=== PATIENT | female | born 1935 | race African-American/Black ===

== ENCOUNTER 2017-07-11 10:55 | Inpatient (IN) | payer SELFPAY ==
[~2017-07-11] VITALS: Ht 162.6 cm; Wt 50.8 kg
[2017-07-11] MEDS ORDERED: SODIUM CHLORIDE 0.9% 1000ML BAG (SEPSIS BOLUS) IV ONE (11:15)
[2017-07-11 11:57] LABS: BASOPHILS % 1.3 % (0.0-2.0); HEMATOCRIT. 36.6 % (36.0-48.0); HEMOGLOBIN. 12.1 g/dL (12.0-16.0); MEAN CORPUSCULAR HEMOGLOBIN 25.1 pg (28.0-32.0); MEAN CORPUSCULAR VOLUME 75.9 fL (81.0-99.0); MEAN PLATELET VOLUME 8.4 fl (7.4-10.4); MONOCYTES % 10.8 % (2.0-8.0); NEUTROPHILS % 68.9 % (40.0-76.0); PLATELET 106 x1000/uL (130-400); RED BLOOD CELL COUNT 4.82 mill/uL (4.2-5.4); RED CELL DISTRIBUTION WIDTH 14.6 % (11.6-14.6)
[2017-07-11 12:03] LABS: CHLORIDE 107 mEq/L (98-107)
[2017-07-11 12:10] LABS: PROTHROMBIN TIME 10.9 sec (9.4-11.6)
[2017-07-11 12:12] LABS: CARBON DIOXIDE 30 mEq/L (21-32)
[2017-07-11 14:25] LABS: CLARITY URINE CLOUDY (CLEAR); COLOR URINE YELLOW (YELLOW); GLUCOSE URINE NEGATIVE (NEGATIVE); KETONES URINE NEGATIVE (NEGATIVE); LEUKOCYTE ESTERASE URINE 1+ (NEGATIVE); NITRITE URINE POSITIVE (NEGATIVE); OCCULT BLOOD URINE NEGATIVE (NEGATIVE); PH URINE 5.5 (4.5-8.0); PROTEIN URINE NEGATIVE (NEGATIVE); SPECIFIC GRAVITY URINE 1.015 (1.005-1.030)
[2017-07-11] MEDS ORDERED: CEFTRIAXONE 1 G PREMIX 50 ML IV ONE (15:00)
[2017-07-11] MEDS ORDERED: BENA40TA3 PO (17:55)
[2017-07-11] MEDS ORDERED: RISP2TAB22 PO (17:56)
[2017-07-11 18:02] VITALS: BP 131/80
[2017-07-11] MEDS ORDERED: ONDANSETRON HCL 4MG/2ML VIAL IV PRN (18:45)
[2017-07-11] MEDS ORDERED: DOCUSATE SODIUM 100MG CAPSULE PO PRN (18:45)
[2017-07-11] MEDS ORDERED: LEVOFLOXACIN 500MG PREMIX 100 ML IV SCH (18:45)
[2017-07-11] MEDS ORDERED: MEDICATION NOT ON FORMULARY EA (Benazepril Hcl 1 TAB) PO SCH (18:45)
[2017-07-11] MEDS ORDERED: ACETAMINOPHEN 650MG SUPP PR PRN (18:45)
[2017-07-11] MEDS ORDERED: ENOXAPARIN 40MG/0.4ML SYR SUBCUT SCH (18:45)
[2017-07-11] MEDS ORDERED: MAGNESIUM/ALUMINUM HYDROXIDE/SIMETHICONE 30ML UDC PO PRN (18:45)
[2017-07-11] MEDS ORDERED: NA PHOS,M-B/NA PHOS,DI-BA ENEMA 118ML PR PRN (18:45)
[2017-07-11] MEDS ORDERED: DIPHENHYDRAMINE 50MG/ML VIAL IV PRN (18:45)
[2017-07-11] MEDS ORDERED: HYDROCODONE/ACETAMINOPHEN 5/325MG TABLET PO PRN (18:45)
[2017-07-11] MEDS ORDERED: IPRATROPIUM/ALBUTEROL 0.5-3(2.5)MG/3ML NEB INH PRN (18:45)
[2017-07-11] MEDS ORDERED: ACETAMINOPHEN 650MG/20.3ML UDC GT PRN (18:45)
[2017-07-11] MEDS ORDERED: GUAIFENESIN 200MG/10ML SUGAR FREE UDC PO PRN (18:45)
[2017-07-11 20:00] VITALS: BP 173/91
[2017-07-11] MEDS ORDERED: LEVOFLOXACIN 500MG PREMIX 100 ML IV NR (20:00)
[2017-07-11] MEDS: SODIUM CHLORIDE 0.9% INJ 3ML FLUSH IVF SCH (20:43)
[2017-07-11] MEDS: ENOXAPARIN 30MG/0.3ML SYR SUBCUT SCH (20:43)
[2017-07-11] MEDS: CLONIDINE 0.1MG TABLET PO PRN (20:44)
[2017-07-11 23:08] LABS: CLARITY URINE CLEAR (CLEAR); COLOR URINE YELLOW (YELLOW); GLUCOSE URINE NEGATIVE (NEGATIVE); KETONES URINE NEGATIVE (NEGATIVE); LEUKOCYTE ESTERASE URINE TRACE (NEGATIVE); NITRITE URINE NEGATIVE (NEGATIVE); OCCULT BLOOD URINE TRACE (NEGATIVE); PH URINE 5.5 (4.5-8.0); PROTEIN URINE NEGATIVE (NEGATIVE); SPECIFIC GRAVITY URINE 1.009 (1.005-1.030); UROBILINOGEN URINE 0.2 E.U./dL (0.2-1.0)
[2017-07-11 23:23] LABS: *AMPHETAMINES SCREEN URINE NEGATIVE (NEGATIVE); *BARBITURATES SCREEN URINE NEGATIVE (NEGATIVE); *BENZODIAZEPINES SCREEN URINE NEGATIVE (NEGATIVE); *COCAINE SCREEN URINE NEGATIVE (NEGATIVE); CANNABINOID URINE SCREEN NEGATIVE (NEGATIVE); METHADONE URINE SCREEN NEGATIVE (NEGATIVE); OPIATES URINE SCREEN PRESUMTIVE POSITIVE (NEGATIVE); PHENCYCLIDINE URINE SCREEN NEGATIVE (NEGATIVE)
[2017-07-11 23:29] LABS: CREATINE KINASE 67 IU/L (26-192); TROPONIN I < 0.02 ng/mL (0.00-0.04)
[2017-07-12] VITALS: BP 153/77
[2017-07-12 04:00] VITALS: BP 102/67
[2017-07-12] MEDS: SODIUM CHLORIDE 0.9% INJ 3ML FLUSH IVF SCH ×3 (06:35→22:21)
[2017-07-12 08:00] VITALS: BP 161/77
[2017-07-12 08:11] LABS: BASOPHILS % 2.3 % (0.0-2.0); EOSINOPHILS % 2.3 % (0.0-5.0); HEMATOCRIT. 34.6 % (36.0-48.0); HEMOGLOBIN. 11.5 g/dL (12.0-16.0); LYMPHOCYTES % 25.5 % (20.0-50.0); MEAN CORPUSCULAR HEMOGLOBIN 25.1 pg (28.0-32.0); MEAN CORPUSCULAR VOLUME 75.3 fL (81.0-99.0); MEAN PLATELET VOLUME 9.7 fl (7.4-10.4); MONOCYTES % 13.5 % (2.0-8.0); NEUTROPHILS % 56.4 % (40.0-76.0); PLATELET 98 x1000/uL (130-400); RED BLOOD CELL COUNT 4.59 mill/uL (4.2-5.4); RED CELL DISTRIBUTION WIDTH 14.6 % (11.6-14.6)
[2017-07-12 08:22] LABS: CARBON DIOXIDE 28 mEq/L (21-32); CHLORIDE 110 mEq/L (98-107); CREATINE KINASE 61 IU/L (26-192); HDL CHOLESTEROL 79 mg/dL (40-59); LDL CHOLESTEROL 63 mg/dL (5-100); TROPONIN I < 0.02 ng/mL (0.00-0.04)
[2017-07-12] MEDS: BENAZEPRIL 20MG TABLET PO SCH (08:26)
[2017-07-12 12:00] VITALS: BP 148/78
[2017-07-12 16:00] VITALS: BP 180/91
[2017-07-12 20:00] VITALS: BP 179/89
[2017-07-12] MEDS ORDERED: LEVOFLOXACIN 250MG PREMIX 50 ML IV SCH (20:00)
[2017-07-12] MEDS: CLONIDINE 0.1MG TABLET PO PRN (20:52)
[2017-07-12 21:29] LABS: VITAMIN B12 SERUM 309 pg/mL (211-911)
[2017-07-12] MEDS: ENOXAPARIN 30MG/0.3ML SYR SUBCUT SCH (21:36)
[2017-07-12] MEDS: LEVOFLOXACIN 250MG PREMIX 50 ML IV SCH (23:31)
[2017-07-12] MEDS ORDERED: HALOPERIDOL LACTATE 5MG/ML VIAL IM NR (23:45)
[2017-07-13] VITALS: BP 134/79
[2017-07-13 04:00] VITALS: BP 184/99
[2017-07-13] MEDS: SODIUM CHLORIDE 0.9% INJ 3ML FLUSH IVF SCH ×3 (05:09→22:33)
[2017-07-13] MEDS: CLONIDINE 0.1MG TABLET PO PRN (05:10)
[2017-07-13 08:00] VITALS: BP 160/80
[2017-07-13] MEDS: BENAZEPRIL 20MG TABLET PO SCH (08:32)
[2017-07-13 12:00] VITALS: BP 126/74
[2017-07-13 16:00] VITALS: BP 132/75
[2017-07-13] MEDS ORDERED: AJ125 PO (18:22)
[2017-07-13 19:55] LABS: BASOPHILS % 1.2 % (0.0-2.0); EOSINOPHILS % 1.2 % (0.0-5.0); HEMATOCRIT. 35.2 % (36.0-48.0); HEMOGLOBIN. 11.7 g/dL (12.0-16.0); LYMPHOCYTES % 14.5 % (20.0-50.0); MEAN PLATELET VOLUME 9.2 fl (7.4-10.4); NEUTROPHILS % 73.1 % (40.0-76.0); PLATELET 105 x1000/uL (130-400); RED CELL DISTRIBUTION WIDTH 14.3 % (11.6-14.6)
[2017-07-13 19:59] LABS: CHLORIDE 108 mEq/L (98-107)
[2017-07-13 20:00] VITALS: BP 140/82
[2017-07-13 20:07] LABS: CARBON DIOXIDE 27 mEq/L (21-32)
[2017-07-13 20:11] LABS: TROPONIN I < 0.02 ng/mL (0.00-0.04)
[2017-07-13] MEDS: LEVOFLOXACIN 250MG PREMIX 50 ML IV SCH (22:33)
[2017-07-14] VITALS (8 sets, daily range): BP systolic 118–166; BP diastolic 74–83
[2017-07-14] MEDS: SODIUM CHLORIDE 0.9% INJ 3ML FLUSH IVF SCH ×2 (05:44→15:19)
[2017-07-14] MEDS: BENAZEPRIL 20MG TABLET PO SCH (09:22)
[2017-07-14] MEDS ORDERED: LEVOFLOXACIN 250MG TABLET PO SCH (11:00)
== END 2017-07-14 18:00 | disposition home or self-care (01) | DRG 463 ==
LOC: ER 10:59 → 8WST 15:16 → EDBEDREQ 15:19 → EDBEDREQSVC 15:38 → ENRESERV 16:05 → 8WST 07-12 14:31
PROVIDERS: ADMIT Family Medicine; ATTEND Family Medicine
DX: N39.0 Urinary tract infection, site not specified (principal); E46 Unspecified protein-calorie malnutrition; F03.90 Unspecified dementia, unspecified severity, without behavioral disturbance, psychotic disturbance, mood disturbance, and anxiety; D64.9 Anemia, unspecified; I10 Essential (primary) hypertension; Z68.1 Body mass index [BMI] 19.9 or less, adult
CPT/HCPCS: 36415; 70450; 70551; 71010; 80053; 80061; 80305; 81001; 82550; 82607; 82962; 83605; 84443; 84484; 85025; 85379; 85610; 87040; 87077; 87086; 87186; 93005; 93970; 96361; 96365; 99285; C1893; J0696; J1630; J1650; J1956; J7030; J7040